=== PATIENT | female | born 1970 | race Caucasian/White ===

== ENCOUNTER → 2018-09-01 | Outpatient (CLI) | payer BC ==
--- NOTE | 2018-09-01 16:23 | US ---
Clinical history: 47-year-old female complaining of right-sided pelvic pain (hysterectomy, 5 years ago). Interpretation: Small round homogeneous echodense "mass" posteriorly vaginal vault corresponds with patient history that she still has a cervix. No nabothian cysts. No other uterine tissue ("hysterectomy") or pelvic mass lesion. Neither ovary appreciated on today's exam. No ovarian cysts. No free fluid in the cul-de-sac. Symmetrically distended normal appearing urinary bladder.
== END ==
LOC: DL.US 14:44
PROVIDERS: ATTEND Nurse Practitioner
DX: R10.2 Pelvic and perineal pain (principal)
CPT/HCPCS: 76830; 76857